=== PATIENT | female | born 1950 | race Caucasian/White ===

== ENCOUNTER → 2016-04-26 | Outpatient (CLI) | payer OTHER ==
[~2016-04-26] MED LIST: BIOIDENTICAL HORMONE; CO Q-10100 MG PO; FISH OIL 1,001000 MG PO; MULTIVITAMINS PO; NORVASC 5 MG TAB5 MG PO; RESVERATROL100 MG PO; TORADOL 10 MG T10 MG PO; VITAMIN D1000 UNI1 PO; ZESTRIL20 MG PO
== END ==
LOC: RAD 08:18
DX: Z12.31 Encounter for screening mammogram for malignant neoplasm of breast (principal)

== ENCOUNTER → 2016-05-04 | Outpatient (CLI) | payer OTHER | LOC: RAD 01:28 | DX: N63 Unspecified lump in breast (principal) ==

== ENCOUNTER → 2017-05-03 | Outpatient (CLI) | payer OTHER | LOC: RAD 08:49 | DX: Z12.31 Encounter for screening mammogram for malignant neoplasm of breast (principal) ==

== ENCOUNTER → 2018-03-22 | Outpatient (CLI) | payer OTHER ==
[~2018-03-22] VITALS: Ht 167.6 cm; Wt 97.5 kg
[~2018-03-22] MED LIST changes: +FISH OIL 1,001000 M2 PO; +KRILL OIL500 MG PO; +LOSARTAN POTASS50 MG PO; +MAGNESIUM PO; +MOBIC15 MG PO; +VITAMIN K240 MCG PO
--- NOTE | ~2018-03-22 | P ---
[facility] [place] [address] PROCEDURE REPORT Name: VESTA MAK [id number] Admission: 03/22/18 Attend Phys: Robert Haque Discharge: Date of : 50 Report #: [id number] THIS REPORT FOR: //name// CC: Robert Sylvester MD DATE OF SERVICE: 03/22/2018 PROCEDURE PERFORMED: Colonoscopy with biopsies. HISTORY OF PRESENT ILLNESS: The patient is a 68-year-old female with a history of colon polyps, here for a 5-year routine followup. Denies any symptoms. No family history of colon cancer. DESCRIPTION OF PROCEDURE: The risks and benefits of the procedure were explained to the patient, those risks including but not limited to bleeding, perforation, the risk of sedation. She understood these risks and gave informed consent. Sedation was given using propofol per anesthesia. Next, a digital rectal exam was initially performed, which was normal. Next, using a standard Olympus colonoscope, the scope was placed in the patient's anus and advanced under direct vision to the cecum. The overall prep was excellent. The cecum and ileocecal valve were normal in appearance. Diverticulosis was noted throughout the ascending, transverse, descending and sigmoid colon, no evidence of inflammation, otherwise normal. Two 3-4 mm sessile polyps are noted in the rectum. These were removed by cold forceps. On retroflexion, small nonbleeding internal hemorrhoids were noted, otherwise normal colonoscopy. The scope was then withdrawn and the procedure terminated. The patient tolerated the procedure well. IMPRESSION: 1. Moe diverticulosis. 2. Two small rectal polyps. 3. Small internal hemorrhoids. 4. Otherwise normal colonoscopy. RECOMMENDATIONS: 1. Await biopsy results. 2. If polyps are hyperplastic, repeat in 10 years; if adenomatous polyps, repeat in 5 years. [facility] [address] [place] [address] PROCEDURE REPORT Name: VESTA MAK [id number] Admission: 03/22/18 Attend Phys: Robert Haque Discharge: Date of : 50 Report #: [id number] Thank you for allowing me to participate in her care. By: 0926 1005 Robert Maier MD /nt
--- NOTE | 2018-03-23 16:06 | PATH ---
[facility] [address] [place] [address] PATHOLOGY RPT PROCEDURE Name: VESTA RODRIGUEZ Room #: REG [facility] M.R.#: [id number] Admission: 03/22/18 Date of : 50 Discharge: Report #: [id number] Path Case #: [id number] L[facility] Accession Number: [id number] . 01 Material submitted: . BX RECTAL POLYP X2 . 01 Clinical history: . Pre-OP DX: Hx colon polyps Post-OP DX: Diverticulosis, rectal polyp, internal hemorrhoids . 02 Diagnosis: Polyp x2, rectal polyps, endoscopic biopsy: - All fragments showing hyperplastic polyps. - Negative for dysplasia. (IUV:steel rule die maker; 03/23/2018) MBR/03/23/2018 . 02 Electronically signed: . Alexsandra Lyons MD, Pathologist NPI- [id number] . 01 Gross description: . Received in formalin labeled "Rodriguez, Vesta, BX rectal polyp x2," are 2 segments of jeffries soft tissue measuring 1.0 x 0.3 x 0.2 cm in aggregate dimensions and ranging from 0.4 to 0.6 cm in maximum dimension. The specimen is submitted entirely in cassette A1. (TSD; 03/22/2018) TOB/TOB . 02 Pathologist provided ICD-10: K62.1 . 02 CPT . 809417 Specimen Comment: A courtesy copy of this report has been sent to Specimen Comment: [phone], . Specimen Comment: Report sent to / DR PINTO Performed at: [address], [place] [id number] MD Alfred Davis MD Phone: [phone] Performed at: [address] [id number] MD Alexsandra Lyons MD Phone: [phone]
== END | disposition home or self-care (01) ==
LOC: GI 06:49
DX: Z12.11 Encounter for screening for malignant neoplasm of colon (principal); K62.1 Rectal polyp; K57.30 Diverticulosis of large intestine without perforation or abscess without bleeding; K64.8 Other hemorrhoids; I10 Essential (primary) hypertension; G47.33 Obstructive sleep apnea (adult) (pediatric); Z90.710 Acquired absence of both cervix and uterus; Z86.010 Personal history of colon polyps; Z98.890 Other specified postprocedural states; Z88.8 Allergy status to other drugs, medicaments and biological substances; Z79.899 Other long term (current) drug therapy
CPT/HCPCS: 62110; 62900

== ENCOUNTER → 2018-05-10 | Outpatient (CLI) | payer OTHER | LOC: RAD 10:48 | DX: Z12.31 Encounter for screening mammogram for malignant neoplasm of breast (principal) ==

== ENCOUNTER → 2019-03-21 | Outpatient (CLI) | payer OTHER | LOC: CAT 12:43 | DX: Z13.6 Encounter for screening for cardiovascular disorders (principal); I25.10 Atherosclerotic heart disease of native coronary artery without angina pectoris; E78.00 Pure hypercholesterolemia, unspecified ==

== ENCOUNTER → 2019-11-07 | Outpatient (CLI) | payer OTHER ==
[~2019-11-07] MED LIST changes: +COLLAGEN HYDROLY1 GM PO; +CRESTOR20 MG PO; +KRILL OIL 1,001 EAC1 PO; +TYLENOL ARTHRI650 MG PO; +[UNRECOGNIZED DRUG - OTHER] TOP
== END ==
LOC: LAB 11:55
PROVIDERS: ATTEND Orthopaedic Surgery
DX: Z01.812 Encounter for preprocedural laboratory examination (principal); Z20.828 Contact with and (suspected) exposure to other viral communicable diseases

== ENCOUNTER 2019-11-12 08:04 | Observation (INO) | payer OTHER ==
[2019-11-07 10:24] LABS: HEMOGLOBIN 14.9 gm/dL (12.0-15.0); MCH 29.8 pg (26.0-34.0); MCV 87.7 fL (80.0-100.0); RBC 5.02 mil/uL (4.20-5.00); RDW 13.3 % (10.5-14.5)
[2019-11-07 10:39] LABS: ALBUMIN 4.5 g/dL (3.4-5.0); CALCIUM 9.6 mg/dL (8.5-10.1); CREATININE 1.1 mg/dL (0.6-1.0); POTASSIUM 4.3 mmol/L (3.5-5.1)
[2019-11-07 10:57] LABS: URINE BILIRUBIN NEGATIVE (Negative); URINE BLOOD 1+ (Negative); URINE CLARITY CLEAR; URINE COLOR YELLOW; URINE GLUCOSE-RANDOM* NEGATIVE (Negative); URINE KETONES NEGATIVE (Negative); URINE LEUKOCYTES-REFLEX NEGATIVE (Negative); URINE NITRITE-REFLEX NEGATIVE (Negative); URINE PROTEIN (DIPSTICK) NEGATIVE (Negative); URINE UROBILINOGEN 0.2 E.U./dl (0.2-1.0)
[2019-11-07 11:23] LABS: BACTERIA-REFLEX 1-9 Few /HPF (None Seen); CASTS None Seen /LPF (None Seen); CRYSTALS None Seen /LPF (None Seen); SQUAMOUS 0-3 Few /LPF (0-3); URINE RBC 0-2 Rare /HPF (0-2); URINE WBC-REFLEX 0-5 Rare /HPF (0-5)
[2019-11-07 13:21] LABS: PROTIME 10.3 Seconds (9.3-11.4)
--- NOTE | 2019-11-07 15:18 | EKG ---
[facility] [place] [address] ELECTROCARDIOGRAM REPORT Name: VESTA MAK Room #: PRE IN M.R.#: [id number] Admission: Attend Phys: Cam Castorena MD Discharge: Date of : 50 Report #: [id number] THIS REPORT FOR: cc: Claude Sylvester MD, Rene P. MD Santiago, Patrick MD [facility] ~ THIS REPORT FOR: //name// [facility] Test Date: 2019-11-07 Test Time: 10:10:14 Pat Name: VESTA MAK Department: Room: Gender: F Manager Hair: JAYLIN : 1950 Requested By: Cam Castorena Order Number: [id number] : Radu Thibodeaux Measurements Intervals [place] Rate: 80 P: 43 CO: 154 QRS: 0 QRSD: 91 T: 31 QT: 363 QTc: 419 Interpretive Statements Sinus rhythm Compared to ECG 12/08/2011 10:06:21 Sinus tachycardia no longer present Electronically Signed On 11-07-2019 15:18:44 CDT by Radu Thibodeaux [email or web address] <ELECTRONICALLY SIGNED> By: Radu Thibodeaux MD, FACC 11/07/19 1518 1010 1010 Radu Thibodeaux MD, [facility] /EPI
[~2019-11-12] VITALS: Ht 165.1 cm; Wt 92.4 kg
--- NOTE | ~2019-11-12 | O ---
[facility] [place] [address] OPERATIVE REPORT Name: VESTA MAK Room #: 434-P ADM IN M.R.#: [id number] Admission: 11/12/19 Attend Phys: Cam Castorena MD Discharge: Date of : 50 Report #: [id number] THIS REPORT FOR: cc: Calude Sylvester MD, Rene P. MD Abraham,Cam Vanessa MD ~ CC: Claude Castorena DATE OF SERVICE: 11/12/2019 PREOPERATIVE DIAGNOSIS: Right knee osteoarthritis. POSTOPERATIVE DIAGNOSIS: Right knee osteoarthritis. PROCEDURE: Right total knee arthroplasty using Navio robotic showroom sales assistant. SURGEON: Cam Castorena M.D. SAFETY AND HEALTH CONSULTANT: Caryl Workman P.A.-C. INDICATIONS FOR SAFETY AND HEALTH CONSULTANT: Throughout the case, extensive retraction and manipulation of the knee was required. This was afforded to me by my showroom sales assistant. ANESTHESIA: LMA with an adductor canal block. IMPLANTS: Campbell and Nephew size 6 Journey II BCS cobalt chrome femur, size 4 tibia, size 10 polyethylene and size 32 patella. TOURNIQUET TIME: 52 minutes. ESTIMATED BLOOD LOSS: 25 mL. COMPLICATIONS: None. SPECIMENS: None. CONDITION UPON LEAVING THE OPERATING ROOM: Stable. INDICATIONS FOR PROCEDURE: The patient is a 69-year-old female with right knee osteoarthritis. She had failed conservative measures for this and after discussion with her, she elected for right total knee arthroplasty. DESCRIPTION OF PROCEDURE: Risks, benefits, alternatives and complications were discussed in detail with the patient including but not limited to risk of anesthesia, risk of damage to nerves, arteries, blood vessels, risk for [facility] [address] [place] [address] OPERATIVE REPORT Name: VESTA MAK Room #: 434-P ADM IN M.R.#: [id number] Admission: 11/12/19 Attend Phys: Cam Castorena MD Discharge: Date of : 50 Report #: [id number] infection, bleeding, risk for continued knee pain and need for reoperation. Informed consent was obtained from the patient. The right knee was appropriately marked in the preoperative holding area. IV Ancef was given for preoperative antibiotics. She was brought to the operating room and placed in the supine position on operating room table. LMA anesthesia was induced without complication. Tourniquet was placed on the right thigh. Right lower extremity was prepped and draped in normal sterile fashion. Timeout was performed properly identifying the patient and procedure as well as the instrumentation and implants. All in the operating room were in agreement. Right lower extremity was exsanguinated. Tourniquet was inflated. Tourniquet time was 52 minutes. Standard midline approach to the knee was made with 10 blade through the skin. Dissection was taken down sharply to the fascia. Deep flaps were developed medially and laterally. Fresh 10 blade was used to make a medial parapatellar arthrotomy and the knee was inspected. There was severe tricompartmental osteoarthritis. ACL and PCL were removed sharply. Reference pins were placed in the femur and the tibia. The knee was then digitally mapped using the [employer] robotic system. Intraoperative plan was made. We sized the size 6 femur with a size 4 tibia and a 10 spacer. After acceptance of the intraoperative plan, distal femoral cut was made with a Navio bur. Distal femoral cutting block was pinned in place and the chamfer cuts were made. Attention was then turned to the tibia. Remainder of the menisci removed with Bovie cautery. Tibial resection guide was pinned in place using the Navio for placement and tibial resection was made. Flexion and extension gaps were then checked and found to have good balance in flexion and extension both medially and laterally. Tibia was sized, found to be a size 4. Size 4 tibial trial was placed, pinned and punched. A size 6 femoral trial was placed and the box cut was made. This was then trialed with a size 9 and then a size 10 polyethylene. Size 10 polyethylene demonstrated 1-2 mm of laxity medially and laterally throughout range of motion of the knee. A 9 mm was resected from the posterior surface of the patella and a size 32 patellar trial button was placed. Knee was taken through range of motion, found to be stable, found to have good patellar tracking. Trial components were removed. Bony ends were thoroughly irrigated with normal saline. A final size 4 tibia, size 6 Journey II BCS cobalt chrome femur and a size 32 patella were cemented in place using standard cementation techniques. While the cement cured, a periarticular injection consisting of morphine, ropivacaine, epinephrine and Toradol was placed around the knee joint capsule. After the cement cured, the tourniquet was deflated. Hemostasis was obtained with Bovie cautery. A final size 10 polyethylene was placed. A gram of vancomycin was placed deep in the joint. Fascia was closed with 0 Vicryl, skin was closed with 2-0 Vicryl and 3-0 Monocryl. Dermabond and a LEXIE dressing was applied. The patient tolerated this procedure well and went to the recovery room under the care of anesthesia postoperatively. By: 1559 1649 Cam Castorena MD /nt
[2019-11-12 08:57] VITALS: BP 138/87
--- NOTE | 2019-11-12 16:24 | NUR ---
PATIENT ADMITTED FROM OR WITH RIGHT TOTAL KNEE REPLACEMENT, PATIENT HAS LEXIE DRESSING TO RIGHT KNEE, KNEE HIGH CHRIS HOSE, SCD'S AND [facility] CARE. PATIENT ALERT AND ORIENTED X 4, STILL SLEEPY. PATIENT C/O PAIN WITH RIGHT KNEE 4/10, REFUSING PAIN MEDICATION AT THIS TIME. C/O NAUSEA, ZOFRAN 4 MG IV GIVEN. LEFT HAND IV IN PLACE, STARTED D51/2 NS AT 100CC/HR. PHYSICAL THERAPY/DIAMOND WORKED WITH THE PATIENT THIS AFTERNOON. ADMISSION DONE, REPORT GIVEN TO SATISH/KARLOS.
--- NOTE | 2019-11-12 18:29 | NUR ---
PT IS A&OX4, VSS, CONTINENT TO BOWEL AND BLADDER. PT DENIES PAIN. PT WAS EDUCATED ON FALL PRECAUTIONS. WILL CONTINUE TO MONITOR.
[2019-11-12 19:30] VITALS: BP 155/86
[2019-11-12 20:50] VITALS: BP 155/86
--- NOTE | 2019-11-13 03:52 | NUR ---
PT AOX4. PT DENIES PAIN AND SOA. PT AMBULATING WITH X1 ASSIST AND WALKER TO BSC. PT NOTED TO HAVE WEAKNESS TO RLE. PT TOLERATING PO INTAKE OF FLUIDS AND REGULAR DIET. PT MAINTAINS COOLING DEVICE TO RIGHT KNEE, LEXIE DRESSING INTACT. PT RECEIVING SCHEDULED PO MORPHINE BID. PT EXPRESSES CONCERN WITH BEING "NARCOTIC NAIIVE". PROVIDED REASSURANCE TO PT BY DISCUSSING PAIN MANAGEMENT OPTIONS, OXYGEN SUPPLEMENTATION, AND INTERVENTIONS FOR ADVERSE REACTIONS, PT RECEPTIVE TO REASSURANCE, AGREEABLE TO TAKE SCHEDULED PO MORPHINE WITH OXYGEN SUPPLEMENTATION WHILE SLEEPING. 2L O2 VIA NC APPLIED. ENCOURAGED PT TO NOTIFY STAFF FOR ALL NEEDS, CALL LIGHT WITHIN REACH, BED ALARM ON, BED IN LOWEST POSITION, FREQUENT MONITORING WILL CONTINUE.
[2019-11-13 05:00] VITALS: BP 129/75
[2019-11-13 06:00] VITALS: BP 107/62
[2019-11-13 06:07] LABS: HEMATOCRIT 35.7 % (37.0-47.0); MCH 29.8 pg (26.0-34.0); MCHC 33.6 g/dL (28.0-37.0); MCV 88.7 fL (80.0-100.0); RBC 4.03 mil/uL (4.20-5.00); RDW 13.6 % (10.5-14.5); WBC 13.2 thou/uL (4.0-11.0)
[2019-11-13 08:00] VITALS: BP 125/63
--- NOTE | 2019-11-13 09:46 | NUR ---
ASSESSMENT: CM REVIEWED CHART AND MET WITH PATIENT AT THE BEDSIDE. PT IS ALERT AND ORIENTED X4. PT IS HERE DUE TO RIGHT TOTAL KNEE REPLACEMENT. PT REPORTS SHE LIVES IN A HOME ALONE BUT IS GOING TO BE STAYING AT HER SONS HOME AT DISCHARGE. PT REPORTS SHE WILL HAVE NO STEPS TO ENTER THE HOME THERE AND NO STEPS TO USE ONCE INSIDE. PT STATES THAT SHE IS NORMALLY INDEPENDENT WITH ADLS AND AMBULATION. PT REPORTS SHE DID HAVE A WALKER AT HOME THAT SHE BORROWED FROM SOMEONE BUT GAVE IT AWAY AND IS IN NEED OF ONE. PT REPORTS SHE HAS NO PREFERENCE OF [employer]. CM NOTIFIED LIASON AT [employer] THAT PATIENT IS NEEDING A WALKER. PT REPORTS THAT SHE IS GETTING OUTPATIENT THERAPY ARRANGED AT [facility] AND PLAN WAS TO POSSIBLY START ON TUESDAY. PATIENT IS TO WORK WITH THERAPY. CM WILL CONTINUE TO FOLLOW TO ASSIST NEEDED.
[2019-11-13 09:49] VITALS: BP 125/63
[2019-11-13 11:30] VITALS: BP 125/63
--- NOTE | 2019-11-13 12:23 | NUR ---
ESTHELA HAS BEEN DISCHARGED AND IS WAITING ON RIDE. PATIENT WALKED WITH PT AND DENIED NEED TO HAVE ASSISTANCE AND WALK AGAIN BEFORE DISCHARGE. SHE IS REPORTING NO PAIN AND UNDERSTANDS ALL DISCHARGE INFORMATION AND HOW TO CARE FOR [employer] DRESSING.
--- NOTE | 2019-11-13 12:34 | NUR ---
I have reviewed the student's documentation.
--- NOTE | 2019-11-13 13:20 | NUR ---
Assumed pt care at 7am.Pt alert and oriented x4.Assessment completed.vss.Pt tolerated meds and diet.Ambulated in hallways with thearpist.Good endurance noted.social media marketing manager arranged for walker and out pt therapy.Dc summary compile and reviewed with pt .Cade villa dc'd. At 1340,pt dc home per wc accompanied by stamping die try out worker.
== END 2019-11-13 13:49 | disposition home or self-care (01) ==
LOC: 4S 08:04 → TBA 08:04 → PRE 09:34 → 4S 13:31 → PRE 15:39 → 4S 11-13 13:49
PROVIDERS: ADMIT Orthopaedic Surgery; ATTEND Orthopaedic Surgery
DX: M17.11 Unilateral primary osteoarthritis, right knee (principal); Z79.899 Other long term (current) drug therapy
CPT/HCPCS: 27447; S2900; 10102; 50010; 50101; 50415; 50954; 51225; 51320; 53000; 53078; 54118; 56527; 56528; 57095; 57103; 57110; 57127; 57180; 58239; 62110; 62900; 64039; 70005

== ENCOUNTER → 2020-04-22 | Day surgery (SDC) | payer OTHER ==
[~2020-04-22] VITALS: Ht 165.1 cm; Wt 93.0 kg
[~2020-04-22] MED LIST changes: +CO Q-10 100 MG1 EACH PO; -CO Q-10100 MG PO; +CRESTOR10 MG PO; +D3 + K2 DOTS 11 EACH PO; +LOSARTAN POTAS100 MG PO; +MAGNESIUM500 MG PO; -MULTIVITAMINS PO; +ONE-DAILY MULT1 EAC1 PO; +VITAMIN C1000 MG PO; -VITAMIN D1000 UNI1 PO
[2020-04-22 11:10] LABS: URINE BILIRUBIN NEGATIVE (Negative); URINE BLOOD NEGATIVE (Negative); URINE CLARITY CLEAR; URINE COLOR YELLOW; URINE GLUCOSE-RANDOM* NEGATIVE (Negative); URINE KETONES NEGATIVE (Negative); URINE LEUKOCYTES-REFLEX NEGATIVE (Negative); URINE NITRITE-REFLEX NEGATIVE (Negative); URINE PROTEIN (DIPSTICK) NEGATIVE (Negative); URINE UROBILINOGEN 0.2 E.U./dl (0.2-1.0)
[2020-04-22 11:12] LABS: HEMATOCRIT 44.9 % (37.0-47.0); MCHC 33.4 g/dL (28.0-37.0); MCV 86.8 fL (80.0-100.0); RBC 5.18 mil/uL (4.20-5.00); RDW 14.6 % (10.5-14.5)
[2020-04-22 11:18] LABS: ALBUMIN 4.1 g/dL (3.4-5.0); CALCIUM 9.8 mg/dL (8.5-10.1); POTASSIUM 4.2 mmol/L (3.5-5.1)
[2020-04-22 11:26] LABS: PROTIME 10.9 Seconds (9.3-11.4)
--- NOTE | 2020-04-22 15:38 | EKG ---
[address] [address] ELECTROCARDIOGRAM REPORT Name: VESTA MAK Room #: PRE [facility] M.R.#: [id number] Admission: Attend Phys: Cam Castorena MD Discharge: Date of : 50 Report #: [id number] [facility] Test Date: 2020-04-22 Test Time: 10:56:01 Pat Name: VESTA MAK Department: Room: Gender: F Tick Sewer: ANUSHA SWANSON : 1950 Requested By: Cam Castorena Order Number: [id number] MD: Radu Thibodeaux Measurements Intervals [place] Rate: 93 P: 54 NM: 144 QRS: 17 QRSD: 80 T: 61 QT: 371 QTc: 462 Interpretive Statements Sinus tachycardia Atrial premature complexes Borderline T wave abnormalities Compared to ECG 11/07/2019 10:10:14 Atrial premature complex(es) now present T-wave abnormality now present Sinus rhythm no longer present Electronically Signed On 04-22-2020 15:38:16 CDT by Radu Thibodeaux [email or web address] <ELECTRONICALLY SIGNED> By: Radu Thibodeaux MD, [facility] 04/22/20 1538 1056 1056 Radu Thibodeaux MD, [facility] /EPI
== END | disposition home or self-care (01) ==
LOC: PAC 07:16 → OR 04-28 07:16 → TBA 04-28 07:17 → OR 04-28 07:17
PROVIDERS: ATTEND Orthopaedic Surgery
DX: Z01.812 Encounter for preprocedural laboratory examination (principal); M17.12 Unilateral primary osteoarthritis, left knee; I10 Essential (primary) hypertension; E78.00 Pure hypercholesterolemia, unspecified; E78.5 Hyperlipidemia, unspecified; Z98.890 Other specified postprocedural states; Z79.899 Other long term (current) drug therapy; Z90.710 Acquired absence of both cervix and uterus

== ENCOUNTER → 2020-04-22 | Outpatient (CLI) | payer OTHER | LOC: LAB 11:33 | PROVIDERS: ATTEND Orthopaedic Surgery | DX: Z01.812 Encounter for preprocedural laboratory examination (principal); Z20.822 Contact with and (suspected) exposure to COVID-19 ==

== ENCOUNTER → 2020-05-02 | Outpatient (CLI) | payer OTHER | LOC: LAB 10:14 | PROVIDERS: ATTEND Orthopaedic Surgery | DX: Z01.812 Encounter for preprocedural laboratory examination (principal); Z20.822 Contact with and (suspected) exposure to COVID-19 ==

== ENCOUNTER 2020-05-07 11:56 | Observation (INO) | payer OTHER ==
[~2020-05-07] VITALS: Ht 165.1 cm; Wt 96.6 kg
--- NOTE | ~2020-05-07 | O ---
[facility] [place] [address] OPERATIVE REPORT Name: VESTA MAK Room #: REG [facility]..#: [id number] Admission: 05/07/20 Attend Phys: Cam Castorena MD Discharge: Date of : 50 Report #: [id number] THIS REPORT FOR: cc: Claude Sylvester MD, Rene P. MD Abraham,Cam Vanessa MD ~ DATE OF SERVICE: 05/07/2020 PREOPERATIVE DIAGNOSIS: Left knee osteoarthritis. POSTOPERATIVE DIAGNOSIS: Left knee osteoarthritis. PROCEDURE: Left total knee arthroplasty using Navio robotic assistance. SURGEON: Cam Castorena MD. RN ENDOCRINOLOGY: Caryl Workman PA-C. INDICATIONS FOR RN ENDOCRINOLOGY: Throughout the case, extensive retraction and manipulation of the knee was required. This was afforded to me by my construction assistant. ANESTHESIA: LMA with an adductor canal block. IMPLANTS: Campbell and Nephew size 6 Journey II BCS cobalt chrome femur, size 4 tibia, size 10 constrained polyethylene and size 32 patella. TOURNIQUET TIME: 64 minutes. ESTIMATED BLOOD LOSS: 25 mL. COMPLICATIONS: None. SPECIMENS: None. CONDITION UPON LEAVING THE OPERATING ROOM: Stable. INDICATIONS FOR PROCEDURE: The patient is a 70-year-old female with left knee osteoarthritis. She had failed conservative measures for this and after discussion with her, she elected for left total knee arthroplasty. DESCRIPTION OF PROCEDURE: Risks, benefits, alternatives, complications were discussed in detail with the patient including but not limited to risk of anesthesia, risk of damage to nerves, arteries, blood vessels, risk for infection, bleeding, risk for continued knee pain, need for reoperation. Informed consent was obtained from the patient. Left knee was appropriately [facility] [address] [place] [address] OPERATIVE REPORT Name: VESTA MAK Room #: REG [facility] M.R.#: [id number] Admission: 05/07/20 Attend Phys: Cam Castorena MD Discharge: Date of : 50 Report #: [id number] marked in the preoperative holding area. IV Ancef was given for preoperative antibiotics. Adductor canal block was placed by Anesthesia. She was brought to the operating room and placed in supine position on the operating room table. LMA anesthesia was induced without complication. Tourniquet was placed on the left thigh. Left lower extremity was prepped and draped in normal sterile fashion. Timeout was performed properly identifying the patient and procedure as well as the instrumentation and implants. All in the operating room were in agreement. Left lower extremity was exsanguinated, tourniquet was inflated. Tourniquet time was 64 minutes. Standard midline approach to knee was made with 10 blade through the skin. Dissection was taken down sharply to the fascia. Deep flaps were developed medially and laterally. Fresh 10 blade was used to make a medial parapatellar arthrotomy and the knee was inspected. There was severe tricompartmental osteoarthritis. ACL and PCL were removed sharply. Reference pins were placed in the femur and the tibia. The knee was digitally mapped using the [employer] robotic system. Intraoperative plan was made and we sized the size 6 femur, size 4 tibia and a 10 spacer. After acceptance of the intraoperative plan, the distal femoral cut was made with Navio bur. Distal femoral cutting block was pinned in place and chamfer cuts were made. Attention was turned to the tibia. Remainder of the menisci removed with Bovie cautery. Tibial resection guide was pinned in place and tibial resection was made. Flexion and extension gaps were checked and found to have good balance in flexion and extension both medially and laterally. Tibia was sized, found to be a size 4. Size 4 tibial trial was placed, pinned and punched. A size 6 femoral trial was placed and box cut was made. This was then trialed with a size 9 and then a size 10 polyethylene. Size 10 polyethylene demonstrated 1-2 millimeter of laxity medially with up to 3 mm of laxity laterally in deep flexion. It was felt we could make up for this with a constrained implant, 9 mm of bone was resected from the posterior surface of the patella and a size 32 patellar trial button was placed. Knee was taken through range of motion, found to be stable, found to have good patellar tracking. Trial components were removed. Bony ends were thoroughly irrigated with normal saline. Final size 4 tibia, size 6 Journey II BCS cobalt chrome femur and a size 32 patella were cemented in place using standard cementation techniques. While the cement cured, a periarticular injection consisting of morphine, ropivacaine, epinephrine, Toradol was placed around the knee joint capsule. After the cement cured, tourniquet was deflated. Hemostasis was obtained with Bovie cautery. Final size 10 constrained polyethylene was placed. A gram of vancomycin was placed deep in the joint. The fascia was closed with 0 Vicryl, skin was closed with 2-0 Vicryl, skin staple and a LEXIE dressing was applied. The patient tolerated this procedure well and went to recovery room under care of anesthesia postoperatively. By: 1630 1651 Cam Castorena MD /cristina
[2020-05-07 12:55] VITALS: BP 149/98
--- NOTE | 2020-05-07 18:30 | NUR ---
PT RECEIVED FROM [facility] AT 1735 ALERT AND IN NO ACUTE DISTRESS. PT SETTLED INTO ROOM AND ORIENTED TO FLOOR. IV FLUIDS STARTED. NAUSEA MED GIVEN W/ RELIEF. LT KNEE DSNG DRY W/ POLAR ABDIEL IN PLACE. TEDS/SCDS. NO C/O PAIN. VOIDED PER BEDPAN W/O PROBLEM.
[2020-05-07 18:40] VITALS: BP 173/87
[2020-05-07 19:52] VITALS: BP 151/89
--- NOTE | 2020-05-08 00:03 | NUR ---
ADMISSION ASSESSMENT COMPLETED. PT IS ALERT AND ORIENTED, PLEASANT AND COOPERATIVE. S/P LEFT KNEE, LEXIE DRSG C/D/I, POLAR ABDIEL IN PLACE, SCDS WELL TEDS ALSO ON. GOOD CSM NOTED TO LEFT FOOT. PT USING BEDPAN, NOT READY TO AMBULATE YET.C/O NAUSEA AND HAD EMESIS X1. HS MEDS DELAYED DUE TO VOMITING. PRN REGLAN GIVEN WITH RELIEF. PT RATES PAIN TOLERABLE AND DENIES NEED FOR ANY PRN PAIN MEDS-SHE WAS GIVEN TIMED MSCONTIN.IVF INFUSING. IV ABT GIVEN PER PROTOCOL. WILL CONTINUE WITH POC TILL EOS.
[2020-05-08 04:57] VITALS: BP 134/82
[2020-05-08 05:51] LABS: HEMATOCRIT 37.8 % (37.0-47.0); HEMOGLOBIN 12.6 gm/dL (12.0-15.0); MCH 29.4 pg (26.0-34.0); MCHC 33.3 g/dL (28.0-37.0); MCV 88.2 fL (80.0-100.0); RBC 4.29 mil/uL (4.20-5.00); RDW 14.6 % (10.5-14.5); WBC 11.2 thou/uL (4.0-11.0)
[2020-05-08 08:05] VITALS: BP 131/69
--- NOTE | 2020-05-08 08:57 | NUR ---
ASSESSMENT: CM REVIEWED CHART AND SPOKE WITH PATIENT AT THE BEDSIDE. PT IS ALERT AND ORIENTED X4. PT IS S/P TOTAL KNEE REPLACEMENT. PT REPORTS LIVING IN A HOME ALONE BUT STATES SHE WILL BE STAYING WITH HER SON AGAIN AT DISCHARGE. PT REPORTS HE LIVES IN A HOUSE WITH 1 STEP TO ENTER THE HOME AND ABOUT 6 STEPS WITH HANDRAILS TO THE LEVEL WITH BEDROOMS. PT REPORTS THAT SHE HAS A WALKER AT HOME. PT REPORTS HE HAS A WALK IN SHOWER WITH A GRAB BAR. PT REPORTS THAT SHE ANTICIPATES DOING OUTPATIENT THERAPY AND ALREADY HAS IT ARRANGED AT [facility] TO BEGIN ON TUESDAY. CM DISCUSSED ROLE. PT DOES NOT ANTICIPATE HAVING ANY NEEDS. CM WILL CONTINUE TO FOLLOW TO SEE HOW PATIENT DOES WITH THERAPY.
--- NOTE | 2020-05-08 11:48 | NUR ---
Assumed care of pt at 0700. Pt a&ox4. C/o nause in the am. Antiemetic administered, and nausea resolved. Dressing c/d/i. Polar care in place. CHRIS and SCDs in place. Able to work with physical therapy this am. Will have another physical therapy sesion in the afternoon. Likely discharge to home later in the day. Pain controlled with prn pain meds. Call light within reach. Fall precautions in place. WIll conitnue to monitor
[2020-05-08 15:31] VITALS: BP 131/69
== END 2020-05-08 16:03 | disposition home or self-care (01) ==
LOC: OR 11:56 → 4S 17:20 → OR 17:21 → 4S 05-08 16:03
PROVIDERS: ADMIT Orthopaedic Surgery; ATTEND Orthopaedic Surgery
DX: M17.12 Unilateral primary osteoarthritis, left knee (principal); M17.11 Unilateral primary osteoarthritis, right knee; Z79.899 Other long term (current) drug therapy
CPT/HCPCS: 27447; S2900; 50010; 50101; 50415; 50954; 51130; 51225; 51320; 51412; 53000; 53078; 56527; 56528; 57095; 57103; 57110; 57127; 57180; 58239; 62110; 62900; 70005

== ENCOUNTER → 2021-01-21 | Outpatient (CLI) | payer OTHER | LOC: BC 13:39 | PROVIDERS: ATTEND Family Medicine | DX: Z12.31 Encounter for screening mammogram for malignant neoplasm of breast (principal); N64.89 Other specified disorders of breast ==